=== PATIENT | male | born 1995 | race Caucasian/White ===

== ENCOUNTER → 2020-08-27 14:39 | Outpatient (BNVA) | payer SELFPAY | PROVIDERS: Visit Provider Nurse Practitioner Family | DX: Z20.828 Contact with and (suspected) exposure to other viral communicable diseases (principal) | CPT/HCPCS: 87635 ==

== ENCOUNTER 2020-11-22 05:51 | Inpatient (IN) | payer SELFPAY ==
[2020-11-22 06:00] VITALS: BP 122/88; PULSE 127; RESP 20; TEMP 36.3; O2SAT 95; BMI 28.7
[2020-11-22 06:07] VITALS: BP 122/88; PULSE 126; RESP 20; O2SAT 96
[2020-11-22 06:17] LABS: Basophils % 0.4 %; Eosinophils % 0.3 %; Hematocrit 49.7 % (42.0-52.0); Hemoglobin 17.1 g/dL (11.7-16.6); Lymphocytes # 2.8 10^3/uL (0.8-4.8); Lymphocytes % 30.5 %; Mean Corpuscular HGB Conc 34.4 g/dL (30.0-36.0); Mean Corpuscular Hemoglobin 29.9 pg (28.0-34.0); Mean Corpuscular Volume 86.9 fL (80-94); Mean Platelet Volume 11.3 fL (7.4-10.4); Monocytes # 0.7 10^3/uL (0.2-0.9); Monocytes % 7.8 %; Neutrophils # 5.56 10^3/uL (1.8-7.7); Neutrophils % 60.9 %; Nucleated Red Blood Cells % 0 %; Platelet Count 185 10^3/cmm (130-400); Red Blood Count 5.72 10^6/uL (4.1-5.3); Red Cell Distribution Width 12.5 % (12.1-15.1); White Blood Count 9.1 10^3/uL (4.0-10.0)
[2020-11-22 06:21] LABS: Add Urine Microscopic? NO
[2020-11-22 06:29] LABS: Alanine Aminotransferase 28 U/L (0-41); Albumin Level 4.9 g/dL (3.5-5.2); Alcohol Level 264 mg/dL (0-10); Alkaline Phosphatase 67 IU/L (40-130); Anion Gap 16.8 (5-19); Aspartate Amino Transferase 16 U/L (0-40); Blood Urea Nitrogen 3 mg/dL (6-20); Calcium 8.6 mg/dL (8.5-10.5); Carbon Dioxide 25 mmol/L (22-29); Chloride 107 mmol/L (98-107); Globulin 3.4 g/dL (1.3-4.6); Glomerular Filtration Rate 103.7 mL/min (90-130); Glucose 110 mg/dL (65-115); Osmolality Calculated 297 mOsm/kg (285-295); Potassium 3.8 mmol/L (3.5-5.1); Sodium 145 mmol/L (136-145); Total Bilirubin 0.3 mg/dL (0.15-1.2); Total Protein 8.3 g/dL (6.6-8.7)
[2020-11-22 06:30] LABS: Acetaminophen < 5.0 ug/mL (10-30); Salicylate < 0.3 mg/dL (3-10)
[2020-11-22 06:48] LABS: Blood Urine Neg (Negative); Glucose Urine UA Norm (Normal); Ketones Urine Negative (Negative); Protein Urine Neg (Negative); Specific Gravity, Urine 1.005 (1.005-1.030); Urine Appearance Clear (CLEAR); Urine Color Yellow (Yellow); pH Urine 7 (5-7)
[2020-11-22 06:49] LABS: Bilirubin Urine Neg (Negative); Leukocyte Esterase Urine Negative (Negative); Nitrate Urine Negative (Negative); Urobilinogen Urine Norm (Negative)
[2020-11-22 06:57] LABS: Amphetamines Screen Urine Negative (Negative); Barbiturates Screen Urine Negative (Negative); Benzodiazepines Screen Urine Negative (Negative); Cocaine Screen Urine Negative (Negative); Opiate Screen Urine Negative (Negative); PCP Screen Urine Negative (Negative); THC Screen Urine Positive (Negative)
--- NOTE | 2020-11-22 07:15 | PC.NURSE ---
patient is resting, no acute distress noted at this time.
--- NOTE | 2020-11-22 07:23 | ED_ITS ---
HPI - Psych General: Chief Complaint: Psychiatric Symptoms Stated Complaint: MHE, brought in by police Time Seen by Provider: 11/22/20 06:07 History of Present Illness: HPI Narrative: 25-year-old male presents emergency room with [place] [facility]. He is intoxicated. Admits to binge drinking. There is a relationship issue and his living situation with his girlfriend that precipitated this. He is considering harming himself by using a knife or drinking himself to . He is awake talkative somewhat jovial even. He has no evidence of acute self injury. MD complaint: suicidal ideation Onset (ago): hour(s) Duration: constant History of same: Yes Relieving factors: none Exacerbating factors: alcohol Context: recent alcohol abuse Associated psychiatric symptoms: depression and suicidal ideation Associated symptoms: Reports depression and suicidal ideation; Deny auditory hallucinations, visual hallucinations, delusions, homicidal ideation or racing thoughts Treatments prior to arrival: none If self harm: admits thoughts of self harm and has plan Review of Systems Const: Denies: fever(s), chills, body aches, change in appetite, fatigue or malaise ENMT: Denies: throat pain, ear or mastoid pain, nasal discharge or nasal congestion Card: Denies: chest pain, edema, dyspnea on exertion or orthopnea Resp: Denies: dyspnea, productive cough or non-productive cough GI: Denies: abdominal pain, nausea, vomiting, hematemesis, coffee ground emesis, diarrhea, constipation, bloating, hematochezia or melena : Denies: flank pain, dysuria, urinary frequency or urinary urgency Skin/Breast: Denies: rash or pruritus Psych: Reports: depression and suicidal ideation; Denies: visual hallucinations, auditory hallucinations or homicidal ideation Physical Exam Const: COMMON NORMALS: no acute distress GENERAL APPEARANCE: cooperative and comfortable ORIENTATION/CONSCIOUSNESS: Yes awake, Yes oriented to person, Yes oriented to place and Yes oriented to time HENMT: COMMON NORMALS: normocephalic, atraumatic and hearing grossly normal bilaterally HEAD & SCALP: normocephalic and atraumatic Neck/C-Spine: COMMON NORMALS: no JVD Resp: COMMON NORMALS: normal respiratory effort, No retractions, No use of accessory muscles and clear to auscultation bilaterally AUSCULTATION: clear to auscultation bilaterally Cardio: COMMON NORMALS: no JVD, regular rate, regular rhythm and No murmurs present (Cardio) RATE: regular rate RHYTHM: regular rhythm GI: COMMON NORMALS: Soft to palpation and No hepatosplenomegaly present AUSCULTATION: Yes normoactive bowel sounds PALPATION: Yes Soft to palpation, No Tenderness to palpation present (GI), No Guarding due to palpation present (GI) and Yes No hepatosplenomegaly present Extremity: COMMON NORMALS: normal to inspection, capillary refill normal, no clubbing, cyanosis or edema, no calf tenderness and no pedal edema Neuro: SENSORIUM/ORIENTATION: Yes oriented to person, Yes oriented to place and Yes oriented to time Psych: THOUGHT CONTENT: No delusions Skin: COMMON NORMALS: no rashes or lesions noted GENERAL SKIN EXAM: no rashes or lesions noted MDM - Psych MDM Narrative: Medical decision making narrative: Discussed with Dr. Bryant he will accept the patient on the floor orders have been written. Admit for suicidal ideation. Lab Data: Labs: Lab Results 11/22/20 11/22/20 11/22/20 Range/Units 06:05 06:05 06:10 WBC 9.1 (4.0-10.0) 10^3/ uL RBC 5.72 H (4.1-5.3) 10^6/u L Hgb 17.1 H (11.7-16.6) g/dL Hct 49.7 (42.0-52.0) % MCV 86.9 (80-94) fL MCH 29.9 (28.0-34.0) pg MCHC 34.4 (30.0-36.0) g/dL RDW 12.5 (12.1-15.1) % Plt Count 185 (130-400) 10^3/c mm MPV 11.3 H (7.4-10.4) fL Neut % (Auto) 60.9 % Lymph % (Auto) 30.5 % [place] % (Auto) 7.8 % Eos % (Auto) 0.3 % Baso % (Auto) 0.4 % Neut # (Auto) 5.56 (1.8-7.7) 10^3/u L Lymph # (Auto) 2.8 (0.8-4.8) 10^3/u L [place] # (Auto) 0.7 (0.2-0.9) 10^3/u L Eos # (Auto) 0.0 (0.0-0.8) 10^3/u L Baso # (Auto) 0.0 (0.0-0.1) 10^3/u L Nucleated RBC % (a uto) 0 % Nucleated RBCs # 0.0 /100WBC Sodium 145 (136-145) mmol/L Potassium 3.8 (3.5-5.1) mmol/L Chloride 107 (98-107) mmol/L Carbon Dioxide 25 (22-29) mmol/L Anion Gap 16.8 (5-19) BUN 3 L (6-20) mg/dL Creatinine 0.9 (0.7-1.2) mg/dL GFR Calculation 103.7 (90-130) mL/min Glucose 110 (65-115) mg/dL Calculated Osmolal ity 297 H (285-295) mOsm/k g Calcium 8.6 (8.5-10.5) mg/dL Total Bilirubin 0.3 (0.15-1.2) mg/dL AST 16 (0-40) U/L ALT 28 (0-41) U/L Alkaline Phosphata se 67 (40-130) IU/L Total Protein 8.3 (6.6-8.7) g/dL Albumin 4.9 (3.5-5.2) g/dL Globulin 3.4 (1.3-4.6) g/dL Urine Color Yellow (Yellow) Urine Appearance Clear (CLEAR) Urine pH 7 (5-7) Ur Specific Gravit y 1.005 (1.005-1.030) Urine Protein Neg (Negative) Urine Glucose (UA) Norm (Normal) Urine Ketones Negative (Negative) Urine Blood Neg (Negative) Urine Nitrate Negative (Negative) Urine Bilirubin Neg (Negative) Urine Urobilinogen Norm (Negative) mg/dL Ur Leukocyte Renata ase Negative (Negative) Salicylates < 0.3 L (3-10) mg/dL Urine Opiates Scre en (Negative) ng/mL Acetaminophen < 5.0 L (10-30) ug/mL Ur Barbiturates Sc reen (Negative) ng/mL Ur Phencyclidine S crn (Negative) ng/mL Ur Amphetamines Sc reen (Negative) ng/mL U Benzodiazepines Scrn (Negative) ng/mL Urine Cocaine Scre en (Negative) ng/mL U Marijuana (THC) Screen (Negative) ng/mL Ethyl Alcohol 264 H (0-10) mg/dL 11/22/20 Range/Units 06:10 WBC (4.0-10.0) 10^3/ uL RBC (4.1-5.3) 10^6/u L Hgb (11.7-16.6) g/dL Hct (42.0-52.0) % MCV (80-94) fL MCH (28.0-34.0) pg MCHC (30.0-36.0) g/dL RDW (12.1-15.1) % Plt Count (130-400) 10^3/c mm MPV (7.4-10.4) fL Neut % (Auto) % Lymph % (Auto) % [place] % (Auto) % Eos % (Auto) % Baso % (Auto) % Neut # (Auto) (1.8-7.7) 10^3/u L Lymph # (Auto) (0.8-4.8) 10^3/u L [place] # (Auto) (0.2-0.9) 10^3/u L Eos # (Auto) (0.0-0.8) 10^3/u L Baso # (Auto) (0.0-0.1) 10^3/u L Nucleated RBC % (a uto) % Nucleated RBCs # /100WBC Sodium (136-145) mmol/L Potassium (3.5-5.1) mmol/L Chloride (98-107) mmol/L Carbon Dioxide (22-29) mmol/L Anion Gap (5-19) BUN (6-20) mg/dL Creatinine (0.7-1.2) mg/dL GFR Calculation (90-130) mL/min Glucose (65-115) mg/dL Calculated Osmolal ity (285-295) mOsm/k g Calcium (8.5-10.5) mg/dL Total Bilirubin (0.15-1.2) mg/dL AST (0-40) U/L ALT (0-41) U/L Alkaline Phosphata se (40-130) IU/L Total Protein (6.6-8.7) g/dL Albumin (3.5-5.2) g/dL Globulin (1.3-4.6) g/dL Urine Color (Yellow) Urine Appearance (CLEAR) Urine pH (5-7) Ur Specific Gravit y (1.005-1.030) Urine Protein (Negative) Urine Glucose (UA) (Normal) Urine Ketones (Negative) Urine Blood (Negative) Urine Nitrate (Negative) Urine Bilirubin (Negative) Urine Urobilinogen (Negative) mg/dL Ur Leukocyte Renata ase (Negative) Salicylates (3-10) mg/dL Urine Opiates Scre en Negative (Negative) ng/mL Acetaminophen (10-30) ug/mL Ur Barbiturates Sc reen Negative (Negative) ng/mL Ur Phencyclidine S crn Negative (Negative) ng/mL Ur Amphetamines Sc reen Negative (Negative) ng/mL U Benzodiazepines Scrn Negative (Negative) ng/mL Urine Cocaine Scre en Negative (Negative) ng/mL U Marijuana (THC) Screen Positive H (Negative) ng/mL Ethyl Alcohol (0-10) mg/dL Discharge Plan Discharge Patient Disposition: Admitted As Inpatient Clinical Impression: Suicidal ideation, Depression, Alcohol intoxication Condition: Stable Coding Level of Care Code ED Performance Improvement Consultant for Preethi Fwd Exam Comprehensive
[2020-11-22 07:32] VITALS: BP 99/65; PULSE 95; RESP 16; O2SAT 95
[2020-11-22 09:09] VITALS: BP 147/89; PULSE 100; RESP 18; TEMP 36.6; O2SAT 96
--- NOTE | 2020-11-22 09:12 | PC.NURSE ---
patient denied any thoughts of harm self at this time.
[2020-11-22 14:00] VITALS: BP 111/66; PULSE 83; RESP 20; TEMP 36.8; O2SAT 96
--- NOTE | 2020-11-22 19:12 | PM.NHP ---
Providers/Chief Complaint Admitting Physician: Jose Bryant MD Chief Complaint: MHE, brought in by police HPI NPU History of Present Illness Baldev Bishop is a 25 year old male who presented to the emergency department with the following report: Chief Complaint: Psychiatric Symptoms Stated Complaint: MHE, brought in by police Time Seen by Provider: 11/22/20 06:07 History of Present Illness: HPI Narrative: 25-year-old male presents emergency room with [place] [employer]. He is intoxicated. Admits to binge drinking. There is a relationship issue and his living situation with his girlfriend that precipitated this. He is considering harming himself by using a knife or drinking himself to . He is awake talkative somewhat jovial even. He has no evidence of acute self injury. MD complaint: suicidal ideation Onset (ago): hour(s) Duration: constant History of same: Yes Relieving factors: none Exacerbating factors: alcohol Context: recent alcohol abuse Associated psychiatric symptoms: depression and suicidal ideation Associated symptoms: Reports depression and suicidal ideation; Deny auditory hallucinations, visual hallucinations, delusions, homicidal ideation or racing thoughts Treatments prior to arrival: none If self harm: admits thoughts of self harm and has plan. He was admitted to the neuropsychiatric unit for definitive treatment of those issues. He was initially on one-to-one secondary to him making more aggressive threats and identifying that he was unable to contract for safety even inside the hospital. Eventually he was able to identify the ability to manage himself on the unit. He endorses that he was last here for his only psychiatric inpatient service prior in June 2019. He denies active suicide attempts in the past but reports that he has felt suicidal. He reports that this time the issues around his 2-year-old child's mother. He reports that he lives in a house with the person he would have reported as his best friend but now appears that his child's mother and his best friend are sleeping together. He reports that now he can get thoughts of that reality on his head and feels like he is losing it a bit. He reports after his previous hospitalization he did not really follow-up with outpatient services and so still never had a active mental health treatment plan and follow through. He denies smoking cigarettes but does endorse drinking alcohol with regularity though he has been trying to quit. He endorses marijuana use but denies any other illicit drug use. Has never been to rehab and never had a DUI. We discussed the risks, benefits and alternatives of a trial of Prozac and he understood and agreed to proceed as documented in this note. [place] Otherwise he denies any major changes from his last stay. An excerpt from that hospitalization is included below. Per his 07/20/[place] [facility] [place]: History of Present Illness Date of Service: Jul 20, 2019 Chief Complaint: I can't stop drinking. HPI: History of present illness: Baldev Marion is a 24-year-old man who last night ingested enough alcohol that he does not remember how he wound up in the emergency room. He said that he went to a [employer] party. He remembers police. But he does not recall how he wind up in the emergency room or how he wound up in the psychiatric unit. He denies any active suicidal or homicidal ideation. He denies any history of suicidal ideation though he does admit that at times he wishes he were . He denied the presence of any auditory or visual hallucinations. He does report significant alcohol abuse. He likes to drink whiskey and drinks on a daily basis. He says that he buys half a dozen shooters a day. 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 He admits that he is an alcoholic. He admits that he cannot stop drinking. He is motivated to change this pattern. He denies experiencing alcohol withdrawal at this time but does admit that he is impaired due to being hung over . Vital Signs Label Value Date Time Blood Pressure Assessment 115/72 (86) 07/20/19 0615 Pulse 89 07/20/19 0615 Location Bilateral Radial Item Value Date Time Urine Opiates Screen NEGATIVE ng/mL 07/20/19454 Urine Barbiturates Screen NEGATIVE ng/mL 07/20/19454 Urine Phencyclidine Screen NEGATIVE ng/mL 07/20/19454 Urine Amphetamines Screen NEGATIVE ng/mL 07/20/19454 Urine Benzodiazepines Screen NEGATIVE ng/mL 07/20/19454 Urine Cocaine Screen NEGATIVE ng/mL 07/20/19454 Urine Marijuana (THC) Screen POSITIVE ng/mL H 07/20/19454 Ethyl Alcohol Level 284 mg/dL H 07/20/19 0256 He does feel that he is clinically depressed. He reports that he is sad and blue on a daily basis. He has little enjoyment in life and has no future goals because he feels somewhat hopeless and overwhelmed. He has severe insomnia sometimes taking up to 4 hours in order to fall sleep. He is frequently tired. He is irritable. He acknowledges that he has made many poor judgments recently. He denies any active suicidal or homicidal ideation. He has never had a plan to end his life. He denies presence of auditory or visual hallucinations. He denies any history of manic symptoms including hyperactivity, insomnia, euphoria, and severe impulsivity. He has no history of substance abuse other than the alcohol. ER note: This started today. (24 y/o male presents to the ED with complaint of suicidal ideations. Pt states he is an alcoholic; smells of ETOH. He was attempting to walk home when he fell and injured his left knee. Pt has been depressed because his drinking has affected his relationship with his baby momma .). The patient has experienced situational problems related to significant other and alcoholism. Recent alcohol consumption. Last drink was just prior to arrival. He is under influence in ED. Has had suicidal thoughts. He inflicted self-injury: abrasion to the right hand, left hand. The symptoms are described as moderate. An injury is present. Location- right hand and left hand. Similar symptoms previously. Recent medical care: The patient was seen recently by a health care provider. Mental health history: Social history: The patient lives with the mother of his child. However they recently have gone through some sort of a relationship breakup. Even though they are no longer in a committed relationship, they continue to live together. He said that this very confusing and both of them have exercised poor judgment. She is also being treated for mental health problems but is on 5 or 6 different medications. He is employed full-time at [employer]. He says work is going well and he likes it. He is highly motivated to maintain his job. Legal history: There is no public record of criminal activity or any other type of legal involvement. Past medical history: He has never been hospitalized for mental health reasons. He has never been treated by psychiatrist or with medications for mental health problems before. He has never been in any type of individual or family counseling. Meds NPU Home Medications Medication Instructions Recorded Confirmed Last Taken Type Unable to Assess 11/22/20 11/22/20 Unknown History Allergies Allergy/AdvReac Type Severity Reaction Status Date / Time No Known Allergies Allergy Verified 11/22/20 06:07 Mental Status Exam MSE Comments: This is an overweight male in hospital scrubs with adequate grooming and eye contact. No abnormal movements except for psychomotor retardation. Cooperative with exam in mild distress. Speech was decreased rate and volume. Mood described as depressed, affect congruent. Thought process organized. Thought content: Patient endorsed suicidal ideation and intrusive thoughts of what the 2 of them are doing, he denied homicidal ideation, there were no delusions reported or noted, he denied any auditory or visual hallucinations. Attention and concentration were intact and memory appeared reliable but none were formally tested. He is alert and oriented x3. Insight and judgment are fair, impulse control is limited. Vitals/I&O/Wt Last Vital Signs Temp 98.6 F 11/22/20 19:47 Pulse 79 11/22/20 19:47 Resp 18 11/22/20 19:47 BP 108/72 11/22/20 19:47 Pulse Ox 96 11/22/20 19:47 Weight last 48 hrs Weight 90.718 kg Data NPU : 11/22/20 06:05 11/22/20 06:05 A&P Assessment and plan (1) Suicidal ideation: Status: Acute (2) Depression: Status: Acute (3) Alcohol intoxication: Status: Acute (4) Partner relational problem: Status: Acute Additional A&P Information This is a 25-year-old male with a long history of alcohol addiction, cannabis use depression and relational problems with his child's mother who presents open to a trial of medication. . Continue current medication. Start Prozac 20 mg p.o. every morning. May start propranolol 20 mg p.o. 3 times daily for anxiety. 2. Continue every 15 minute checks for safety. 3. Encourage individual, group and milieu therapies. 4. Encourage sober living treatment after discharge at the highest level of care to which he is willing to commit. Involuntary Hold Information 96 Hour Hold: 96 Hour Involuntary Admission: No Attestations NPU Medical Necessity Statement*: Inpatient hospitalization is medically necessary and the clinically appropriate intervention at this time. We will monitor medications and make changes as indicated. Patient will be in the hospital for over two midnights. Likely length of stay 3 to 5 days. Coding Level of Care Code Acute Hydrochloric Area Supervisor for g Fwd Diagnoses Suicidal ideation R45.851 Depression F32.9 Alcohol intoxication F10.929 Partner relational problem Z63.0
[2020-11-22 19:47] VITALS: BP 108/72; PULSE 79; RESP 18; TEMP 37; O2SAT 96
[2020-11-22] MEDS: hyDROXYzine 25 mg Capsule 50 MG PO (20:26)
[2020-11-22] MEDS: acetaminophen 325 mg Tablet 650 MG PO (20:26)
[2020-11-22] MEDS: trazodone 50 mg Tablet PO (20:27)
[2020-11-23 06:00] VITALS: BP 127/76; PULSE 70; RESP 18; TEMP 36.8; O2SAT 98
[2020-11-23 15:51] VITALS: BP 127/76; PULSE 70; RESP 18; TEMP 36.8; O2SAT 98
--- NOTE | 2020-11-23 15:55 | PM.NDC ---
Diagnoses at Discharge Discharge Diagnosis (1) Suicidal ideation: Status: Resolved (2) Depression: Status: Acute (3) Alcohol intoxication: Status: Resolved (4) Partner relational problem: Status: Acute (5) Alcohol abuse: Status: Acute Reason for Visit Reason for Visit: MHE, brought in by police Brief History: History of Present Illness Baldev Bishop is a 25 year old male who presented to the emergency department with the following report: Chief Complaint: Psychiatric Symptoms Stated Complaint: MHE, brought in by police Time Seen by Provider: 11/22/20 06:07 History of Present Illness: HPI Narrative: 25-year-old male presents emergency room with [facility]. He is intoxicated. Admits to binge drinking. There is a relationship issue and his living situation with his girlfriend that precipitated this. He is considering harming himself by using a knife or drinking himself to . He is awake talkative somewhat jovial even. He has no evidence of acute self injury. MD complaint: suicidal ideation Onset (ago): hour(s) Duration: constant History of same: Yes Relieving factors: none Exacerbating factors: alcohol Context: recent alcohol abuse Associated psychiatric symptoms: depression and suicidal ideation Associated symptoms: Reports depression and suicidal ideation; Deny auditory hallucinations, visual hallucinations, delusions, homicidal ideation or racing thoughts Treatments prior to arrival: none If self harm: admits thoughts of self harm and has plan. He was admitted to the neuropsychiatric unit for definitive treatment of those issues. He was initially on one-to-one secondary to him making more aggressive threats and identifying that he was unable to contract for safety even inside the hospital. Eventually he was able to identify the ability to manage himself on the unit. He endorses that he was last here for his only psychiatric inpatient service prior in June 2019. He denies active suicide attempts in the past but reports that he has felt suicidal. He reports that this time the issues around his 2-year-old child's mother. He reports that he lives in a house with the person he would have reported as his best friend but now appears that his child's mother and his best friend are sleeping together. He reports that now he can get thoughts of that reality on his head and feels like he is losing it a bit. He reports after his previous hospitalization he did not really follow-up with outpatient services and so still never had a active mental health treatment plan and follow through. He denies smoking cigarettes but does endorse drinking alcohol with regularity though he has been trying to quit. He endorses marijuana use but denies any other illicit drug use. Has never been to rehab and never had a DUI. We discussed the risks, benefits and alternatives of a trial of Prozac and he understood and agreed to proceed as documented in this note. [place] Otherwise he denies any major changes from his last stay. An excerpt from that hospitalization is included below. [place] [facility] [place] History of Present Illness Date of Service: Jul 20, 2019 Chief Complaint: I can't stop drinking. HPI: History of present illness: Baldev Marion is a 24-year-old man who last night ingested enough alcohol that he does not remember how he wound up in the emergency room. He said that he went to a [employer] [facility]. He remembers police. But he does not recall how he wind up in the emergency room or how he wound up in the psychiatric unit. He denies any active suicidal or homicidal ideation. He denies any history of suicidal ideation though he does admit that at times he wishes he were . He denied the presence of any auditory or visual hallucinations. He does report significant alcohol abuse. He likes to drink whiskey and drinks on a daily basis. He says that he buys half a dozen shooters a day. 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 He admits that he is an alcoholic. He admits that he cannot stop drinking. He is motivated to change this pattern. He denies experiencing alcohol withdrawal at this time but does admit that he is impaired due to being hung over . Vital Signs Label Value Date Time Blood Pressure Assessment 115/72 (86) 07/20/19 0615 Pulse 89 07/20/19 06 Location Bilateral Radial Item Value Date Time Urine Opiates Screen NEGATIVE ng/mL 07/20/19454 Urine Barbiturates Screen NEGATIVE ng/mL 07/20/19454 Urine Phencyclidine Screen NEGATIVE ng/mL 07/20/19454 Urine Amphetamines Screen NEGATIVE ng/mL 07/20/19454 Urine Benzodiazepines Screen NEGATIVE ng/mL 07/20/195 Urine Cocaine Screen NEGATIVE ng/mL 07/20/195 Urine Marijuana (THC) Screen POSITIVE ng/mL H 07/20/19 0455 Ethyl Alcohol Level 284 mg/dL H 07/20/19 0256 He does feel that he is clinically depressed. He reports that he is sad and blue on a daily basis. He has little enjoyment in life and has no future goals because he feels somewhat hopeless and overwhelmed. He has severe insomnia sometimes taking up to 4 hours in order to fall sleep. He is frequently tired. He is irritable. He acknowledges that he has made many poor judgments recently. He denies any active suicidal or homicidal ideation. He has never had a plan to end his life. He denies presence of auditory or visual hallucinations. He denies any history of manic symptoms including hyperactivity, insomnia, euphoria, and severe impulsivity. He has no history of substance abuse other than the alcohol. ER note: This started today. (24 y/o male presents to the ED with complaint of suicidal ideations. Pt states he is an alcoholic; smells of ETOH. He was attempting to walk home when he fell and injured his left knee. Pt has been depressed because his drinking has affected his relationship with his baby momma .). The patient has experienced situational problems related to significant other and alcoholism. Recent alcohol consumption. Last drink was just prior to arrival. He is under influence in ED. Has had suicidal thoughts. He inflicted self-injury: abrasion to the right hand, left hand. The symptoms are described as moderate. An injury is present. Location- right hand and left hand. Similar symptoms previously. Recent medical care: The patient was seen recently by a health care provider. Mental health history: Social history: The patient lives with the mother of his child. However they recently have gone through some sort of a relationship breakup. Even though they are no longer in a committed relationship, they continue to live together. He said that this very confusing and both of them have exercised poor judgment. She is also being treated for mental health problems but is on 5 or 6 different medications. He is employed full-time at [employer]. He says work is going well and he likes it. He is highly motivated to maintain his job. Legal history: There is no public record of criminal activity or any other type of legal involvement. Past medical history: He has never been hospitalized for mental health reasons. He has never been treated by psychiatrist or with medications for mental health problems before. He has never been in any type of individual or family counseling. Hospital Course Hospital Course Patient presented to the emergency department intoxicated and endorsing suicidal thoughts as he struggled with the relationship between his child's mother and his reported best friend. He was admitted to the neuropsychiatric unit for definitive treatment of those issues. He was started on Prozac, propranolol and trazodone and showed a positive response to those medications. He worked with the treatment team to get connected to outpatient resources. He was able to work through some of the issues he was having in his acute crisis. And he was able to contract for safety prior to discharge and has adequate supports to continue his convalescence outside of the hospital. During the hospitalization, patient had routine laboratory studies which were within normal limits except for few outliers. Additionally there was a general medical evaluation which was also within normal limits and revealed no new acute processes. Discharge Summary: At the time of discharge, patient denied lethality or psychosis. Mood and anxiety were well managed. Patient endorsed a plan to avoid all drugs of abuse and follow-up with the aftercare recommendations of the treatment team. Patient was evaluated and deemed to be absent credible lethality, and had achieved the maximum benefit from an inpatient hospitalization, so was discharged. Involuntary Hold Information 96 Hour Hold: 96 Hour Involuntary Admission: No Mental Status Exam MSE Comments: This is an overweight male in hospital scrubs with adequate grooming and eye contact. No abnormal movements except for mild and resolving psychomotor retardation. Cooperative with exam in no acute distress. Speech was more normal rate and volume. Mood described as better, affect congruent. Thought process organized. Thought content: Patient denied suicidal or homicidal ideation, there were no delusions reported or noted, he denied any auditory or visual hallucinations. Attention and concentration were intact and memory appeared reliable but none were formally tested. He is alert and oriented x3. Insight and judgment are fair, impulse control is limited, but improving. Discharge Data Vitals: Last Vital Signs Temp 98.3 F 11/23/20 15:51 Pulse 70 11/23/20 15:51 Resp 18 11/23/20 15:51 BP 127/76 11/23/20 15:51 Pulse Ox 98 11/23/20 15:51 Discharge Plan Discharge Patient Disposition: Home Condition: Stable Prescriptions: New trazodone 50 mg Tablet 50 mg PO BEDTIME PRN (Reason: Sleep) 30 Days Qty: 30 RF: 1 propranolol 20 mg Tablet 20 mg PO TID PRN (Reason: Anxiety) 30 Days Qty: 30 RF: 1 fluoxetine 20 mg Capsule 20 mg PO DAILY 30 Days Qty: 30 RF: 1 Discharge Orders: Discharge Order (Routine); Ordered 11/23/20 Ordered By: Jose Bryant Referrals: AA meetings [Other] (Sunday-6:00 p.m. [place] [facility] [address] [place] [address] -11:00 a.m. [place] [address] [place] [address] [facility] [address] [place] [address] [phone] Sunday 7pm closed group Sundaypm open book study noon open discussion Sunday 7pm open discussion Sunday noon closed discussion Sunday 12:30 open discussion [facility] [address] [place] [address] [facility] [phone] Sunday 7pm book study closed ) [facility] [place] [facility] [place]Outside] (Intake paperwork completed while in the hospital. They will be calling to set up a time to do your assessment over the phone.) Discharge Diet: Regular Discharge Activity: Resume usual activity Patient Instructions: Fluoxetine (By mouth), Suicide Prevention for Adults (DC) Discharge Attestations NPU Time Spent in Discharge Care*: less than 30 min Specific Discharge Activities: Specific discharge activities: educating patient, discussing with manager of case management/social workers/dc planners, documenting/other paperwork and evaluating patient/reviewing data Coding Level of Care Code Acute Pet Sitting for g Fwd Diagnoses Suicidal ideation R45.851 Depression F32.9 Alcohol intoxication F10.929 Partner relational problem Z63.0 Alcohol abuse F10.10
[2020-11-23] MEDS: fluoxetine 20 mg Capsule PO (16:11)
== END 2020-11-23 16:50 | disposition home or self-care (01) | DRG 881 ==
LOC: ER 07:50 → NP 08:17
PROVIDERS: Emergency Medicine; Admitting Provider Psychiatry & Neurology Psychiatry; Emergency Provider Family Medicine; Visit Provider Psychiatry & Neurology Psychiatry
DX: F32.9 Major depressive disorder, single episode, unspecified (principal); R45.851 Suicidal ideations; F10.229 Alcohol dependence with intoxication, unspecified; Y90.8 Blood alcohol level of 240 mg/100 ml or more; G47.00 Insomnia, unspecified; F12.90 Cannabis use, unspecified, uncomplicated; Z63.0 Problems in relationship with spouse or partner
CPT/HCPCS: 80053; 80306; 80307; 81003; 85025; 99285